=== PATIENT | male | born 1980 | race Caucasian/White ===

== ENCOUNTER 2017-07-21 11:09 | Emergency (ER) | payer OTHER ==
[~2017-07-21] VITALS: Ht 170.2 cm; Wt 70.3 kg
[~2017-07-21 11:09] MED LIST: ACETAMINOPHEN-1 EAC1 PO; FLEXERIL PO; HYDROCODON-ACE1 EAC7 PO; HYDROCODONE-AP1 EAC6 PO; HYDROCODONE-APA1 TA1 PO; MEDROLDOSEPACK PO; NAPROSYN500 MG PO; NOHOMEMEDICATIONS; ROBAXIN 750 MG750 M1 PO; TRAMADOL 50 MG50 MG PO
[2017-07-21 12:25] VITALS: BP 160/99
== END 2017-07-21 12:27 | disposition home or self-care (01) ==
LOC: M.ERS 11:09
DX: S63.8X2A Sprain of other part of left wrist and hand, initial encounter (principal); F17.210 Nicotine dependence, cigarettes, uncomplicated; Z88.1 Allergy status to other antibiotic agents; Z88.6 Allergy status to analgesic agent; Z91.040 Latex allergy status; Z88.0 Allergy status to penicillin; W18.39XA Other fall on same level, initial encounter; Y93.89 Activity, other specified; Y92.89 Other specified places as the place of occurrence of the external cause; Y99.8 Other external cause status

== ENCOUNTER 2017-12-04 07:00 | Emergency (ER) | payer OTHER ==
[~2017-12-04] VITALS: Ht 170.2 cm; Wt 66.7 kg
[2017-12-04] MEDS ORDERED: NORCO 5-325 TA1 EACH PO (07:30)
[2017-12-04 07:43] VITALS: BP 171/100
== END 2017-12-04 07:46 | disposition home or self-care (01) ==
LOC: M.ERS 07:00
DX: M23.92 Unspecified internal derangement of left knee (principal); I10 Essential (primary) hypertension; F17.210 Nicotine dependence, cigarettes, uncomplicated; Z88.0 Allergy status to penicillin; Z88.1 Allergy status to other antibiotic agents; Z88.6 Allergy status to analgesic agent; Z91.040 Latex allergy status; Z90.49 Acquired absence of other specified parts of digestive tract

== ENCOUNTER 2017-12-12 14:40 | Emergency (ER) | payer OTHER ==
[~2017-12-12] VITALS: Ht 170.2 cm; Wt 68.0 kg
[~2017-12-12 14:40] MED LIST changes: +NORCO 5-325 TA1 EACH PO
[2017-12-12] MEDS ORDERED: NORCO 5-325 TA1 EACH PO (15:33)
[2017-12-12 15:56] VITALS: BP 173/108
== END 2017-12-12 15:59 | disposition home or self-care (01) ==
LOC: M.ERS 14:40
DX: M54.5 Low back pain (principal); I10 Essential (primary) hypertension; Z90.49 Acquired absence of other specified parts of digestive tract; F17.210 Nicotine dependence, cigarettes, uncomplicated; Z88.0 Allergy status to penicillin; Z88.1 Allergy status to other antibiotic agents; Z91.040 Latex allergy status; Z88.6 Allergy status to analgesic agent; V89.2XXA Person injured in unspecified motor-vehicle accident, traffic, initial encounter; Y93.89 Activity, other specified; Y92.89 Other specified places as the place of occurrence of the external cause; Y99.8 Other external cause status

== ENCOUNTER 2018-01-15 19:50 | Emergency (ER) | payer OTHER ==
[~2018-01-15] VITALS: Ht 170.2 cm; Wt 68.0 kg
[2018-01-15 20:26] LABS: URINE BILIRUBIN NEGATIVE (Negative); URINE BLOOD TRACE (Negative); URINE CLARITY CLEAR; URINE COLOR YELLOW; URINE GLUCOSE-RANDOM NEGATIVE (Negative); URINE KETONES NEGATIVE (Negative); URINE LEUKOCYTES-REFLEX NEGATIVE (Negative); URINE NITRITE-REFLEX NEGATIVE (Negative); URINE PROTEIN NEGATIVE (Negative); URINE SPECIFIC GRAVITY 1.025 (1.005-1.030); URINE UROBILINOGEN 0.2 E.U./dl (0.2-1.0)
[2018-01-15 20:28] LABS: ABSOLUTE BASOPHILS 0.1 thou/uL (0.0-0.2); ABSOLUTE EOSINOPHILS 0.2 thou/uL (0.0-0.7); ABSOLUTE LYMPHOCYTES 4.5 thou/uL (0.8-5.3); ABSOLUTE NEUTROPHILS 6.1 thou/uL (1.6-8.1); BASOPHILS 0.7 %; EOSINOPHILS 1.8 %; HEMATOCRIT 41.3 % (42.0-52.0); LYMPHOCYTES 37.9 %; MCH 30.2 pg (26.0-34.0); MCHC 33.8 g/dL (28.0-37.0); MCV 89.3 fL (80.0-100.0); MONOCYTES 8.1 %; MPV 10.3 fl. (7.2-11.1); NUCLEATED RBCS 0 /100WBC; PLATELET COUNT* 286 thou/uL (150-400); POLYS 51.5 %; RBC 4.63 mil/uL (4.50-6.00); RDW-CV 14.1 % (10.5-14.5); WBC 11.9 thou/uL (4.0-11.0)
[2018-01-15 20:32] LABS: CALCIUM 9.2 mg/dL (8.5-10.1); CREATININE 1.1 mg/dL (0.6-1.3); POTASSIUM 3.3 mmol/L (3.5-5.1)
[2018-01-15 20:37] LABS: ALBUMIN 3.7 g/dL (3.4-5.0); TOTAL BILIRUBIN 0.4 mg/dL (<0.1-1.0); TOTAL PROTEIN 7.4 g/dL (6.4-8.2)
[2018-01-15 20:37] LABS: AMP/METHAMP Negative (Negative); BARBITURATES Negative (Negative); BENZODIAZEPINES Negative (Negative); COCAINE Negative (Negative); METHADONE Negative (Negative); OPIATES Negative (Negative); PCP Negative (Negative); THC POSITIVE (Negative)
[2018-01-15] MEDS ORDERED: FLAGYL500 MG PO (21:11)
[2018-01-15] MEDS ORDERED: ROBAXIN500 MG PO (21:11)
[2018-01-15 21:26] VITALS: BP 170/98
--- NOTE | 2018-01-17 09:37 | EKG ---
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 : 1980 Requested By: Jacy Jaquez Order Number: [id number] MD: Sheldon Oliver Measurements Intervals [place] Rate: 76 P: 54 ME: 110 QRS: 59 QRSD: 94 T: 62 QT: 396 QTc: 446 Interpretive Statements Sinus rhythm Borderline short ME interval Consider left ventricular hypertrophy ST elev, probable normal early repol pattern No previous ECG available for comparison Electronically Signed On 01-17-2018 9:37:01 CDT by Sheldon Oliver [email or web address] <ELECTRONICALLY SIGNED> By: Sheldon Oliver MD, [facility] 08/936 20 20 Sheldon Oliver MD, [facility] /EPI
== END 2018-01-15 21:26 | disposition home or self-care (01) ==
LOC: M.ERS 19:50
PROVIDERS: Nurse Practitioner Family
DX: S39.012A Strain of muscle, fascia and tendon of lower back, initial encounter (principal); K52.9 Noninfective gastroenteritis and colitis, unspecified; I10 Essential (primary) hypertension; F17.210 Nicotine dependence, cigarettes, uncomplicated; Z90.49 Acquired absence of other specified parts of digestive tract; Z88.1 Allergy status to other antibiotic agents; Z88.6 Allergy status to analgesic agent; Z91.040 Latex allergy status; Z88.0 Allergy status to penicillin; X58.XXXA Exposure to other specified factors, initial encounter; Y93.89 Activity, other specified; Y92.89 Other specified places as the place of occurrence of the external cause; Y99.8 Other external cause status

== ENCOUNTER 2018-02-28 11:57 | Emergency (ER) | payer OTHER ==
[~2018-02-28] VITALS: Ht 170.2 cm; Wt 68.0 kg
[~2018-02-28 11:57] MED LIST changes: +FLAGYL500 MG PO; +ROBAXIN500 MG PO
[2018-02-28] MEDS ORDERED: NORCO 5-325 TA1 EACH PO (12:54)
[2018-02-28 13:07] VITALS: BP 191/120
== END 2018-02-28 13:07 | disposition home or self-care (01) ==
LOC: M.ERS 11:57
DX: M25.562 Pain in left knee (principal); I10 Essential (primary) hypertension; F17.210 Nicotine dependence, cigarettes, uncomplicated; Z88.0 Allergy status to penicillin; Z88.1 Allergy status to other antibiotic agents; Z88.6 Allergy status to analgesic agent; Z91.040 Latex allergy status; Z90.49 Acquired absence of other specified parts of digestive tract

== ENCOUNTER 2018-09-23 18:30 | Emergency (ER) | payer OTHER ==
[~2018-09-23] VITALS: Ht 170.2 cm; Wt 70.3 kg
[2018-09-23] MEDS ORDERED: ACETAMINOPHEN-1 EAC1 PO (19:21)
[2018-09-23 19:48] VITALS: BP 151/88
== END 2018-09-23 19:45 | disposition home or self-care (01) ==
LOC: M.ERS 18:30
DX: S93.491A Sprain of other ligament of right ankle, initial encounter (principal); I10 Essential (primary) hypertension; F17.210 Nicotine dependence, cigarettes, uncomplicated; Z90.49 Acquired absence of other specified parts of digestive tract; Z88.1 Allergy status to other antibiotic agents; Z91.040 Latex allergy status; Z88.0 Allergy status to penicillin; Z88.6 Allergy status to analgesic agent; X50.1XXA Overexertion from prolonged static or awkward postures, initial encounter; Y93.89 Activity, other specified; Y92.89 Other specified places as the place of occurrence of the external cause; Y99.8 Other external cause status

== ENCOUNTER 2018-10-22 19:01 | Observation (INO) | payer OTHER ==
[~2018-10-22] VITALS: Ht 170.2 cm; Wt 61.2 kg
--- NOTE | ~2018-10-22 | CON ---
[address] [address] CONSULTATION Name: FANNY BETTS Room: [address] [place]#: [id number] Admission: 10/22/18 Attend Phys: Heron Tobias MD Discharge: Date of : 84 Report #: [id number] THIS REPORT FOR: //name// CC: FAM physician/PCP Heron Tobias DATE OF SERVICE: 10/23/2018 REASON FOR CONSULTATION: Left ureteral stone with hydronephrosis. CONSULTING PHYSICIAN: Heron Garcia M.D. REFERRING PHYSICIAN: Heron Tobias M.D. HISTORY OF PRESENT ILLNESS: This is a 38-year-old male who presented to the Emergency Room with severe left flank pain for approximately 24 hours. The pain was colicky in nature, severe, up to 9/10. He does have a history of kidney stones and he has passed spontaneously in the past with similar pain. The pain was in his left flank and it radiated to his left upper quadrant. He has had some associated nausea and vomiting, but that did not start until after he was taking the narcotics. He denies any diarrhea, fever, chills, dysuria or hematuria. PAST MEDICAL HISTORY: Hernia surgery, cholecystectomy, nasal surgery x 2, hypertension. There is poorly controlled GI bleed and kidney stones. CURRENT MEDICATIONS: None. However, he has been prescribed hydrochlorothiazide, which he has not been taking because he was afraid of the side effects. ALLERGIES: AMOXICILLIN, ASPIRIN, LATEX, PENICILLIN, AND TRAMADOL. SOCIAL HISTORY: He smokes cigarettes. Denies any alcohol use. REVIEW OF SYSTEMS: See HPI. A 14-point review of systems otherwise reviewed and negative. PHYSICAL EXAMINATION: VITAL SIGNS: Temperature is 36.9, pulse rate 65, respiratory rate 20, blood pressure 190/111. GENERAL: He is alert and oriented x 3, in no apparent distress. HEENT: Normocephalic and atraumatic. NECK: Supple. LUNGS: Clear. HEART: Regular rate and rhythm. ABDOMEN: Soft, nontender, [place] [address] CONSULTATION Name: FANNY BETTS Room: [address]#: [id number] Admission: 10/22/18 Attend Phys: Heron Tobias MD Discharge: Date of : 84 Report #: [id number] BACK: Mild to moderate left CVA tenderness, right is normal. GENITOURINARY: No palpable bladder,. No suprapubic tenderness. EXTREMITIES: No cyanosis, clubbing, edema. NEUROLOGIC: Cranial nerves 2-12 are intact. LABORATORY DATA: White count is 10.1, hemoglobin 14.8, and platelet 286. Sodium is 141, potassium 3.9, BUN 15, and creatinine 1.4. Urinalysis, 3+ blood with greater than 20 red cells per power field, 0-5 white blood cells, no bacteria. CT of the abdomen and pelvis. I reviewed the images. This reveals a 7 mm left proximal ureteral stone with hydronephrosis. The report states that it is at the UVJ, but that is incorrect. It also states it is 7 mm. I would estimate it more at 4-5 mm. He does have 2-3 mm right lower pole stone as well. ASSESSMENT AND PLAN: A 4-5 mm left proximal ureteral stone with hydronephrosis. I reviewed the options in detail with the patient and his significant other. They include medical expulsive therapy versus ESWL as an outpatient versus ureteroscopy, laser lithotripsy and stent. His pain has been fairly difficult to control, but he wants to avoid a ureteral stent if at all possible. In fact, today is his birthday and he would like to discharge home TAMANNA. We discussed the risks and benefits of each option and after reviewing his labs and his options, he would like to proceed with ESWL as an outpatient if possible. I recommend obtaining a KUB to see if that is an option. If so, he would like to discharge home and follow up later this week for possible lithotripsy. If the stone is not visible, the patient still wants to be discharged home and follow up as an outpatient to see if he can pass the stone with medical expulsive therapy. We reviewed that should he develop significant nausea, vomiting, fever, chills or have uncontrolled pain, he will need to notify me or return to the hospital. He and his had a chance to ask questions, which were answered to his satisfaction, and they agreed with the plan. We will obtain a KUB to see if the stone is visible. Okay to discharge from Urology standpoint. He does have uncontrolled hypertension and that will need to be better controlled before proceeding with any procedures. We will defer to the medical team for treatment of that problem. I did encourage the patient to take his prescribed home medication of an antihypertensive. We will prescribe Flomax for the patient to take and he will strain his urine until his stone is treated. By: [id number] Garcia MD /nt
[2018-10-22 19:05] VITALS: BP 208/128
[2018-10-22 19:31] LABS: ABSOLUTE BASOPHILS 0.1 thou/uL (0.0-0.2); ABSOLUTE EOSINOPHILS 0.3 thou/uL (0.0-0.7); ABSOLUTE LYMPHOCYTES 3.5 thou/uL (0.8-5.3); ABSOLUTE MONOCYTES 0.9 thou/uL (0.0-1.2); ABSOLUTE NEUTROPHILS 5.4 thou/uL (1.6-8.1); BASOPHILS 0.9 %; EOSINOPHILS 2.7 %; HEMATOCRIT 43.8 % (42.0-52.0); HEMOGLOBIN 14.8 gm/dL (14.0-18.0); LYMPHOCYTES 34.6 %; MCH 29.2 pg (26.0-34.0); MCHC 33.8 g/dL (28.0-37.0); MCV 86.5 fL (80.0-100.0); MPV 10.3 fl. (7.2-11.1); NUCLEATED RBCS 0 /100WBC; PLATELET COUNT* 286 thou/uL (150-400); POLYS 52.8 %; RBC 5.06 mil/uL (4.50-6.00); RDW-CV 15.2 % (10.5-14.5); WBC 10.2 thou/uL (4.0-11.0)
[2018-10-22 19:39] LABS: CALCIUM 9.5 mg/dL (8.5-10.1); CREATININE 1.4 mg/dL (0.6-1.3); POTASSIUM 3.9 mmol/L (3.5-5.1)
[2018-10-22 19:43] LABS: ALBUMIN 3.8 g/dL (3.4-5.0); TOTAL BILIRUBIN 0.4 mg/dL (<0.1-1.0); TOTAL PROTEIN 7.7 g/dL (6.4-8.2)
[2018-10-22 20:19] LABS: URINE BILIRUBIN NEGATIVE (Negative); URINE BLOOD 3+ (Negative); URINE CLARITY CLEAR; URINE COLOR YELLOW; URINE GLUCOSE-RANDOM NEGATIVE (Negative); URINE KETONES NEGATIVE (Negative); URINE LEUKOCYTES-REFLEX NEGATIVE (Negative); URINE NITRITE-REFLEX NEGATIVE (Negative); URINE PROTEIN 1+ (Negative); URINE SPECIFIC GRAVITY >= 1.030 (1.005-1.030); URINE UROBILINOGEN 0.2 E.U./dl (0.2-1.0)
[2018-10-22 20:39] LABS: BACTERIA-REFLEX None Seen /HPF (None Seen); CASTS None Seen /LPF (None Seen); CRYSTALS None Seen /LPF (None Seen); SQUAMOUS 0-3 Few /LPF (0-3); URINE RBC >20 Many /HPF (0-2); URINE WBC-REFLEX 0-5 Rare /HPF (0-5)
[2018-10-22 21:17] VITALS: BP 196/125
[2018-10-22 21:30] VITALS: BP 211/106
[2018-10-23 04:48] VITALS: BP 190/111
[2018-10-23 08:00] VITALS: BP 192/113
[2018-10-23] MEDS ORDERED: UROCIT-K10 ME1 PO (08:31)
[2018-10-23] MEDS ORDERED: HYDROCHLOROTHIA25 M1 PO (08:31)
[2018-10-23] MEDS ORDERED: HYDROCODON-ACE1 EAC7 PO (08:31)
[2018-10-23] MEDS ORDERED: ZOFRAN ODT4 MG PO (08:31)
[2018-10-23] MEDS ORDERED: LEVSIN0.125 MG SUBLING (08:31)
[2018-10-23] MEDS ORDERED: FLOMAX0.4 MG PO (08:38)
[2018-10-23 09:28] LABS: CREATININE 0.9 mg/dL (0.6-1.3); POTASSIUM 3.5 mmol/L (3.5-5.1)
[2018-10-23 10:57] VITALS: BP 192/116
== END 2018-10-23 14:10 | disposition home or self-care (01) ==
LOC: M.ERS 19:01 → M.TBA-ER 20:24 → M.ORTHSURG 20:24
PROVIDERS: Nurse Practitioner Family; ADMIT Internal Medicine
DX: N13.2 Hydronephrosis with renal and ureteral calculous obstruction (principal); N17.9 Acute kidney failure, unspecified; R11.2 Nausea with vomiting, unspecified; I10 Essential (primary) hypertension; I16.0 Hypertensive urgency; F17.210 Nicotine dependence, cigarettes, uncomplicated; Z90.49 Acquired absence of other specified parts of digestive tract; Z88.6 Allergy status to analgesic agent; Z88.1 Allergy status to other antibiotic agents; Z88.0 Allergy status to penicillin; Z91.040 Latex allergy status; Z98.890 Other specified postprocedural states

== ENCOUNTER 2018-11-13 15:40 | Inpatient (IN) | payer OTHER ==
[~2018-11-13] VITALS: Ht 170.2 cm; Wt 61.2 kg
[~2018-11-13 15:40] MED LIST changes: +FLOMAX0.4 MG PO; +HYDROCHLOROTHIA25 M1 PO; +LEVSIN0.125 MG SUBLING; +UROCIT-K10 ME1 PO; +ZOFRAN ODT4 MG PO
[2018-11-13 15:49] VITALS: BP 169/106
[2018-11-13 16:07] LABS: URINE BILIRUBIN NEGATIVE (Negative); URINE BLOOD TRACE (Negative); URINE CLARITY CLEAR; URINE COLOR YELLOW; URINE GLUCOSE-RANDOM NEGATIVE (Negative); URINE KETONES NEGATIVE (Negative); URINE LEUKOCYTES-REFLEX TRACE (Negative); URINE NITRITE-REFLEX NEGATIVE (Negative); URINE PROTEIN NEGATIVE (Negative); URINE UROBILINOGEN 0.2 E.U./dl (0.2-1.0)
[2018-11-13 16:17] LABS: BACTERIA-REFLEX None Seen /HPF (None Seen); CASTS None Seen /LPF (None Seen); CRYSTALS None Seen /LPF (None Seen); SQUAMOUS 0-3 Few /LPF (0-3); URINE RBC None Seen /HPF (0-2); URINE WBC-REFLEX 0-5 Rare /HPF (0-5)
[2018-11-13 16:20] LABS: ABSOLUTE BASOPHILS 0.1 thou/uL (0.0-0.2); ABSOLUTE EOSINOPHILS 0.2 thou/uL (0.0-0.7); ABSOLUTE MONOCYTES 0.9 thou/uL (0.0-1.2); ABSOLUTE NEUTROPHILS 9.8 thou/uL (1.6-8.1); BASOPHILS 0.8 %; EOSINOPHILS 1.1 %; HEMATOCRIT 46.4 % (42.0-52.0); HEMOGLOBIN 15.8 gm/dL (14.0-18.0); LYMPHOCYTES 21.4 %; MCH 29.2 pg (26.0-34.0); MCHC 34.1 g/dL (28.0-37.0); MCV 85.7 fL (80.0-100.0); MONOCYTES 6.4 %; MPV 10.2 fl. (7.2-11.1); NUCLEATED RBCS 0 /100WBC; PLATELET COUNT* 268 thou/uL (150-400); POLYS 70.3 %; RBC 5.41 mil/uL (4.50-6.00); RDW-CV 14.5 % (10.5-14.5); WBC 13.9 thou/uL (4.0-11.0)
[2018-11-13 16:26] LABS: ANION GAP 13 mmol/L (7-16); BUN 17 mg/dL (7-18); CALCIUM 10.2 mg/dL (8.5-10.1); CHLORIDE 101 mmol/L (98-107); CO2 26 mmol/L (21-32); GLUCOSE 105 mg/dL (70-99); POTASSIUM 3.5 mmol/L (3.5-5.1); SODIUM 140 mmol/L (136-145)
[2018-11-13 16:37] LABS: ALBUMIN 4.2 g/dL (3.4-5.0); ALKALINE PHOSPHATASE 70 U/L (46-116); LIPASE 94 U/L (73-393); SGOT 19 U/L (15-37); SGPT 29 U/L (30-65); TOTAL BILIRUBIN 0.6 mg/dL (<0.1-1.0); TOTAL PROTEIN 8.3 g/dL (6.4-8.2); TROPONIN-I LEVEL <0.06 ng/mL (<0.06)
[2018-11-13 18:04] VITALS: BP 152/100
[2018-11-13 18:25] VITALS: BP 172/107
--- NOTE | 2018-11-13 19:33 | NUR ---
PATIENT ADMITTED TO ROOM 110 VIA CART FROM ER AT 1825. PATIENT'S ASSESSMENT, HISTORY, AND VITALS CHARTED. NEW IV STARTED PER PATIENT REQUEST. IVF INFUSING. UROLOGY CONSULT NOTED. TO BE NPO AFTER MIDNIGHT AND PATIENT AWARE. PATIENT ORIENTED TO ROOM AND ENVIRONMENT. CALL LIGHT WITHIN REACH. WILL CONTINUE WITH PLAN OF CARE.
[2018-11-13 20:00] VITALS: BP 146/89
[2018-11-14 04:30] LABS: HEMATOCRIT 39.2 % (42.0-52.0); MCHC 32.9 g/dL (28.0-37.0); MPV 10.8 fl. (7.2-11.1); RBC 4.45 mil/uL (4.50-6.00); RDW-CV 14.5 % (10.5-14.5); WBC 8.8 thou/uL (4.0-11.0)
[2018-11-14 04:36] LABS: HEMOGLOBIN 12.9 gm/dL (14.0-18.0)
[2018-11-14 04:37] LABS: CALCIUM 8.9 mg/dL (8.5-10.1); CREATININE 0.9 mg/dL (0.6-1.3); MAGNESIUM 1.8 mg/dL (1.8-2.4); POTASSIUM 3.8 mmol/L (3.5-5.1)
--- NOTE | 2018-11-14 06:44 | NUR ---
PATIENT SLEPT VERY LITTLE THIS SHIFT. IV FLUIDS CONTINUE TO INFUSE AT 150 ML/HR. PATIENT WAS GIVEN PAIN MEDICINE ABOUT EVERY 2-3 HOURS AND NAUSEA MEDICINE ONCE THIS SHIFT. PATIENT HAS BEEN NPO SINCE MIDNIGHT FOR POSSIBLE PROCEDURE TODAY. WILL CONTINUE TO MONITOR.
[2018-11-14 07:25] VITALS: BP 152/99
--- NOTE | 2018-11-14 11:28 | EKG ---
[place] [address] ELECTROCARDIOGRAM REPORT Name: FANNY BETTS Room: [address] ADM IN 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: LESLIE : 1980 Requested By: Fatemeh Ramirez Order Number: [id number] MD: Sheldon Oliver Measurements Intervals [place] Rate: 87 P: 51 UT: 116 QRS: 49 QRSD: 85 T: 60 QT: 384 QTc: 462 Interpretive Statements Sinus rhythm Borderline short UT interval ST elev, probable normal early repol pattern Baseline wander in lead(s) V1 Compared to ECG 01/15/2018 20:21:12 No significant changes Electronically Signed On 11-14-2018 11:28:01 CDT by Sheldon Oliver [email or web address] <ELECTRONICALLY SIGNED> By: Sheldon Oliver MD, FAC 11/14/18 1128 1632 1632 Sheldon Oliver MD, FAC /EPI
--- NOTE | 2018-11-14 12:02 | NUR ---
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 HAS LIMITED SUPPORT SYSTEM. PT NEEDING TO TRANSFER TO IN NETWORK FACILITY WITH HIS INSURANCE. UROLOGY GROUP HERE DECLINED TO SEE PT HE IS OUT OF NETWORK. DISCUSSED WITH PT. HE STATED HE HAS APPT FOR SURGERY AT [facility] ON AND WOULD LIKE TO TRSF THERE. [place] [facility] [place] AND HAVE 10 WAITING. [place] TO [place]ICE [place] [facility] SPOKE WITH LATOSHA, CONFIRMED HIS SURGERY IS NOT TILL DECEMBER 11. DISCUSSED FURTHER WITH PT AND GAVE OPTIONS OF OTHER HOSPITALS, AGREEABLE TO CONSIDER [facility]. CALLED AND FAXED REFERRAL TO [facility], THEIR DR/URO SPOKE WITH DR APARICIO AND PT WAS ACCEPTED BY DR PATEL. CHART COPIED, RN TO CALL REPORT TO [facility] [phone]. SET UP AMBULANCE TRANSPORT AND PT NOTIFIED HIS GF. PER DR APARICIO, TO HAVE PROCEDURE TODAY OR TOMORROW, PT MADE AWARE. HE VOICED FRUSTRATION WITH PROCESS, EXPLAINED INSURANCE ISSUES, HE UNDERSTOOD
--- NOTE | 2018-11-14 13:06 | NUR ---
PT TRANSFERRED TO [facility] DUE TO INSURANCE. IV IN PLACE. PAIN MEDS GIVEN ORDERED. NAUSEA MEDS GIVEN ORDERED. FALL RISK PRECAUTIONS IN PLACE. HOURLY ROUNDING COMPLETED.
== END 2018-11-14 13:07 | disposition short-term general hospital (02) | DRG 694 ==
LOC: M.ERS 15:40 → M.TBA-ER 17:04 → M.ORTHSURG 18:07
PROVIDERS: Nurse Practitioner Family; ADMIT Internal Medicine
DX: N13.2 Hydronephrosis with renal and ureteral calculous obstruction (principal); N13.0 Hydronephrosis with ureteropelvic junction obstruction; I10 Essential (primary) hypertension; F17.210 Nicotine dependence, cigarettes, uncomplicated; Z87.442 Personal history of urinary calculi; Z90.49 Acquired absence of other specified parts of digestive tract; Z79.899 Other long term (current) drug therapy; Z88.0 Allergy status to penicillin; Z88.8 Allergy status to other drugs, medicaments and biological substances; Z88.6 Allergy status to analgesic agent; Z88.1 Allergy status to other antibiotic agents; Z91.040 Latex allergy status

== ENCOUNTER 2019-02-07 22:46 | Emergency (ER) | payer OTHER ==
[~2019-02-07] VITALS: Ht 170.2 cm; Wt 65.8 kg
[2019-02-07 23:12] LABS: ABSOLUTE BASOPHILS 0.1 thou/uL (0.0-0.2); ABSOLUTE EOSINOPHILS 0.2 thou/uL (0.0-0.7); ABSOLUTE LYMPHOCYTES 3.4 thou/uL (0.8-5.3); ABSOLUTE MONOCYTES 0.9 thou/uL (0.0-1.2); ABSOLUTE NEUTROPHILS 5.8 thou/uL (1.6-8.1); BASOPHILS 1.1 %; EOSINOPHILS 1.6 %; HEMOGLOBIN 14.7 gm/dL (14.0-18.0); LYMPHOCYTES 32.6 %; MCH 30.4 pg (26.0-34.0); MCHC 34.2 g/dL (28.0-37.0); MCV 88.9 fL (80.0-100.0); MONOCYTES 8.8 %; MPV 10.2 fl. (7.2-11.1); NUCLEATED RBCS 0 /100WBC; PLATELET COUNT* 268 thou/uL (150-400); POLYS 55.9 %; RBC 4.83 mil/uL (4.50-6.00); RDW-CV 14.2 % (10.5-14.5); WBC 10.5 thou/uL (4.0-11.0)
[2019-02-07 23:13] LABS: URINE BILIRUBIN NEGATIVE (Negative); URINE BLOOD 1+ (Negative); URINE CLARITY CLEAR; URINE COLOR YELLOW; URINE GLUCOSE-RANDOM NEGATIVE (Negative); URINE KETONES NEGATIVE (Negative); URINE LEUKOCYTES-REFLEX NEGATIVE (Negative); URINE NITRITE-REFLEX NEGATIVE (Negative); URINE PROTEIN NEGATIVE (Negative); URINE SPECIFIC GRAVITY 1.015 (1.005-1.030); URINE UROBILINOGEN 0.2 E.U./dl (0.2-1.0)
[2019-02-07 23:19] LABS: CALCIUM 9.2 mg/dL (8.5-10.1); CREATININE 0.9 mg/dL (0.6-1.3); POTASSIUM 3.4 mmol/L (3.5-5.1)
[2019-02-07 23:19] LABS: BACTERIA-REFLEX 1-9 Few /HPF (None Seen); CASTS None Seen /LPF (None Seen); MUCUS 0-3 Light strn/LPF (None Seen); SQUAMOUS NONE SEEN /LPF (0-3); URINE RBC 3-10 Few /HPF (0-2); URINE WBC-REFLEX None Seen /HPF (0-5)
[2019-02-07 23:20] LABS: AMORPHOUS URATES Many /LPF (None Seen)
[2019-02-07 23:24] LABS: TOTAL BILIRUBIN 0.4 mg/dL (<0.1-1.0); TOTAL PROTEIN 7.6 g/dL (6.4-8.2)
[2019-02-08] MEDS ORDERED: KEFLEX500 M1 PO (00:59)
[2019-02-08] MEDS ORDERED: NORCO 5-325 TA1 EAC1 PO (00:59)
[2019-02-08 01:11] VITALS: BP 152/94
== END 2019-02-08 01:11 | disposition home or self-care (01) ==
LOC: M.ERS 22:46
PROVIDERS: Emergency Medicine Emergency Medical Services
DX: R10.9 Unspecified abdominal pain (principal); F17.210 Nicotine dependence, cigarettes, uncomplicated; I10 Essential (primary) hypertension; Z88.6 Allergy status to analgesic agent; Z91.040 Latex allergy status; Z88.0 Allergy status to penicillin; Z88.1 Allergy status to other antibiotic agents; Z90.49 Acquired absence of other specified parts of digestive tract; Z87.442 Personal history of urinary calculi

== ENCOUNTER 2019-03-02 18:24 | Emergency (ER) | payer OTHER ==
[~2019-03-02] VITALS: Ht 170.2 cm; Wt 63.5 kg
[~2019-03-02 18:24] MED LIST changes: +KEFLEX500 M1 PO; +NORCO 5-325 TA1 EAC1 PO
[2019-03-02 19:12] LABS: HEMATOCRIT 46.3 % (42.0-52.0); HEMOGLOBIN 16.1 gm/dL (14.0-18.0); MCH 30.1 pg (26.0-34.0); MCHC 34.7 g/dL (28.0-37.0); MCV 86.8 fL (80.0-100.0); MPV 10.2 fl. (7.2-11.1); RBC 5.33 mil/uL (4.50-6.00); RDW-CV 14.4 % (10.5-14.5); WBC 13.4 thou/uL (4.0-11.0)
[2019-03-02 19:19] LABS: CALCIUM 9.5 mg/dL (8.5-10.1); POTASSIUM 3.6 mmol/L (3.5-5.1)
[2019-03-02 20:44] LABS: URINE BILIRUBIN NEGATIVE (Negative); URINE BLOOD 1+ (Negative); URINE CLARITY CLEAR; URINE COLOR YELLOW; URINE GLUCOSE-RANDOM NEGATIVE (Negative); URINE KETONES NEGATIVE (Negative); URINE LEUKOCYTES-REFLEX NEGATIVE (Negative); URINE NITRITE-REFLEX NEGATIVE (Negative); URINE PROTEIN NEGATIVE (Negative); URINE UROBILINOGEN 0.2 E.U./dl (0.2-1.0)
[2019-03-02 20:55] LABS: BACTERIA-REFLEX None Seen /HPF (None Seen); CASTS None Seen /LPF (None Seen); CRYSTALS None Seen /LPF (None Seen); MUCUS 0-3 Light strn/LPF (None Seen); SQUAMOUS 0-3 Few /LPF (0-3); URINE RBC 0-2 Rare /HPF (0-2); URINE WBC-REFLEX None Seen /HPF (0-5)
[2019-03-02] MEDS ORDERED: FLOMAX0.4 MG PO (20:59)
[2019-03-02] MEDS ORDERED: FLEXERIL PO (21:00)
[2019-03-02] MEDS ORDERED: NORCO 5-325 TA1 EAC1 PO (21:00)
[2019-03-02 21:18] VITALS: BP 145/80
== END 2019-03-02 21:20 | disposition home or self-care (01) ==
LOC: M.ERS 18:24
PROVIDERS: Nurse Practitioner
DX: R10.84 Generalized abdominal pain (principal); I10 Essential (primary) hypertension; F17.210 Nicotine dependence, cigarettes, uncomplicated; Z88.6 Allergy status to analgesic agent; Z88.1 Allergy status to other antibiotic agents; Z88.0 Allergy status to penicillin; Z91.040 Latex allergy status; Z87.442 Personal history of urinary calculi; Z90.49 Acquired absence of other specified parts of digestive tract

== ENCOUNTER 2019-04-01 18:58 | Emergency (ER) | payer OTHER ==
[~2019-04-01] VITALS: Ht 170.2 cm; Wt 65.8 kg
[2019-04-01 19:33] LABS: URINE BILIRUBIN NEGATIVE (Negative); URINE BLOOD TRACE (Negative); URINE CLARITY CLEAR; URINE COLOR YELLOW; URINE GLUCOSE-RANDOM NEGATIVE (Negative); URINE KETONES NEGATIVE (Negative); URINE LEUKOCYTES-REFLEX NEGATIVE (Negative); URINE NITRITE-REFLEX NEGATIVE (Negative); URINE PROTEIN NEGATIVE (Negative); URINE UROBILINOGEN 0.2 E.U./dl (0.2-1.0)
[2019-04-01 20:02] LABS: ABSOLUTE BASOPHILS 0.1 thou/uL (0.0-0.2); ABSOLUTE EOSINOPHILS 0.2 thou/uL (0.0-0.7); ABSOLUTE LYMPHOCYTES 4.4 thou/uL (0.8-5.3); ABSOLUTE MONOCYTES 0.7 thou/uL (0.0-1.2); ABSOLUTE NEUTROPHILS 3.5 thou/uL (1.6-8.1); BASOPHILS 1.4 %; EOSINOPHILS 2.8 %; HEMATOCRIT 40.1 % (42.0-52.0); HEMOGLOBIN 13.9 gm/dL (14.0-18.0); LYMPHOCYTES 49.6 %; MCH 30.3 pg (26.0-34.0); MCHC 34.6 g/dL (28.0-37.0); MCV 87.4 fL (80.0-100.0); MONOCYTES 7.3 %; MPV 9.6 fl. (7.2-11.1); NUCLEATED RBCS 0 /100WBC; PLATELET COUNT* 314 thou/uL (150-400); POLYS 38.9 %; RBC 4.59 mil/uL (4.50-6.00); RDW-CV 14.3 % (10.5-14.5); WBC 8.9 thou/uL (4.0-11.0)
[2019-04-01 20:11] LABS: CALCIUM 8.8 mg/dL (8.5-10.1); POTASSIUM 3.8 mmol/L (3.5-5.1)
[2019-04-01 20:15] LABS: ALBUMIN 3.6 g/dL (3.4-5.0); TOTAL BILIRUBIN 0.2 mg/dL (<0.1-1.0); TOTAL PROTEIN 7.2 g/dL (6.4-8.2)
[2019-04-01] MEDS ORDERED: NORCO 5-325 TA1 EAC1 PO (21:17)
[2019-04-01 22:04] VITALS: BP 149/97
== END 2019-04-01 22:05 | disposition home or self-care (01) ==
LOC: M.ERS 18:58
PROVIDERS: Nurse Practitioner Family
DX: R10.9 Unspecified abdominal pain (principal); I10 Essential (primary) hypertension; F17.210 Nicotine dependence, cigarettes, uncomplicated; Z90.49 Acquired absence of other specified parts of digestive tract; Z87.442 Personal history of urinary calculi; Z88.6 Allergy status to analgesic agent; Z88.1 Allergy status to other antibiotic agents; Z88.0 Allergy status to penicillin; Z88.8 Allergy status to other drugs, medicaments and biological substances

== ENCOUNTER 2019-04-26 21:16 | Emergency (ER) | payer OTHER ==
[~2019-04-26] VITALS: Ht 170.2 cm; Wt 63.5 kg
[2019-04-26 21:37] LABS: URINE BILIRUBIN NEGATIVE (Negative); URINE BLOOD 2+ (Negative); URINE CLARITY CLEAR; URINE COLOR YELLOW; URINE GLUCOSE-RANDOM NEGATIVE (Negative); URINE KETONES NEGATIVE (Negative); URINE LEUKOCYTES-REFLEX NEGATIVE (Negative); URINE NITRITE-REFLEX NEGATIVE (Negative); URINE PROTEIN NEGATIVE (Negative); URINE SPECIFIC GRAVITY 1.025 (1.005-1.030); URINE UROBILINOGEN 0.2 E.U./dl (0.2-1.0)
[2019-04-26 21:41] LABS: ABSOLUTE BASOPHILS 0.1 thou/uL (0.0-0.2); ABSOLUTE EOSINOPHILS 0.3 thou/uL (0.0-0.7); ABSOLUTE LYMPHOCYTES 4.7 thou/uL (0.8-5.3); ABSOLUTE MONOCYTES 1.2 thou/uL (0.0-1.2); ABSOLUTE NEUTROPHILS 9.8 thou/uL (1.6-8.1); BASOPHILS 0.8 %; EOSINOPHILS 1.8 %; HEMATOCRIT 42.2 % (42.0-52.0); HEMOGLOBIN 14.5 gm/dL (14.0-18.0); LYMPHOCYTES 29.3 %; MCHC 34.3 g/dL (28.0-37.0); MCV 87.4 fL (80.0-100.0); MONOCYTES 7.5 %; MPV 9.6 fl. (7.2-11.1); NUCLEATED RBCS 0 /100WBC; PLATELET COUNT* 318 thou/uL (150-400); POLYS 60.6 %; RBC 4.82 mil/uL (4.50-6.00); RDW-CV 14.3 % (10.5-14.5); WBC 16.1 thou/uL (4.0-11.0)
[2019-04-26 21:45] LABS: AMP/METHAMP Negative (Negative); BARBITURATES Negative (Negative); BENZODIAZEPINES Negative (Negative); COCAINE Negative (Negative); METHADONE Negative (Negative); OPIATES POSITIVE (Negative); PCP Negative (Negative); THC Negative (Negative)
[2019-04-26 21:47] LABS: BACTERIA-REFLEX 1-9 Few /HPF (None Seen); CASTS None Seen /LPF (None Seen); CRYSTALS None Seen /LPF (None Seen); URINE RBC 0-2 Rare /HPF (0-2); URINE WBC-REFLEX 0-5 Rare /HPF (0-5)
[2019-04-26 21:54] LABS: CALCIUM 9.3 mg/dL (8.5-10.1)
[2019-04-26] MEDS ORDERED: HYDROCODON-ACE1 EAC8 PO (22:43)
[2019-04-26 23:05] VITALS: BP 151/92
== END 2019-04-26 22:50 | disposition home or self-care (01) ==
LOC: M.ERS 21:16
PROVIDERS: Emergency Medicine
DX: N23 Unspecified renal colic (principal); F17.210 Nicotine dependence, cigarettes, uncomplicated; R42 Dizziness and giddiness; I10 Essential (primary) hypertension; Z87.442 Personal history of urinary calculi; Z88.0 Allergy status to penicillin; Z88.1 Allergy status to other antibiotic agents; Z88.6 Allergy status to analgesic agent; Z91.040 Latex allergy status; Z90.49 Acquired absence of other specified parts of digestive tract

== ENCOUNTER 2019-05-12 05:52 | Emergency (ER) | payer OTHER ==
[~2019-05-12] VITALS: Ht 170.2 cm; Wt 65.8 kg
[~2019-05-12 05:52] MED LIST changes: +HYDROCODON-ACE1 EAC8 PO
[2019-05-12] MEDS ORDERED: FLOMAX0.4 MG PO (06:19)
[2019-05-12] MEDS ORDERED: NORFLEX100 MG PO (06:19)
[2019-05-12 06:41] LABS: HEMATOCRIT 44.1 % (42.0-52.0); HEMOGLOBIN 15.1 gm/dL (14.0-18.0); MCH 30.2 pg (26.0-34.0); MCHC 34.4 g/dL (28.0-37.0); MCV 87.9 fL (80.0-100.0); MPV 10.1 fl. (7.2-11.1); RBC 5.01 mil/uL (4.50-6.00); RDW-CV 14.4 % (10.5-14.5); WBC 8.6 thou/uL (4.0-11.0)
[2019-05-12 06:49] LABS: CREATININE 0.8 mg/dL (0.6-1.3); POTASSIUM 3.7 mmol/L (3.5-5.1)
[2019-05-12] MEDS ORDERED: HYDROCODON-ACE1 EAC7 PO (06:50)
[2019-05-12 07:50] VITALS: BP 145/91
== END 2019-05-12 07:52 | disposition home or self-care (01) ==
LOC: M.ERS 05:52
PROVIDERS: Personal Emergency Response Attendant
DX: N23 Unspecified renal colic (principal); I10 Essential (primary) hypertension; F17.210 Nicotine dependence, cigarettes, uncomplicated; Z90.49 Acquired absence of other specified parts of digestive tract; Z87.442 Personal history of urinary calculi; Z88.0 Allergy status to penicillin; Z88.6 Allergy status to analgesic agent; Z91.040 Latex allergy status; Z88.8 Allergy status to other drugs, medicaments and biological substances

== ENCOUNTER 2019-05-23 13:46 | Emergency (ER) | payer OTHER ==
[~2019-05-23] VITALS: Ht 170.2 cm; Wt 65.8 kg
[~2019-05-23 13:46] MED LIST changes: +NORFLEX100 MG PO
[2019-05-23 14:02] LABS: URINE BILIRUBIN NEGATIVE (Negative); URINE BLOOD TRACE (Negative); URINE CLARITY CLEAR; URINE COLOR YELLOW; URINE GLUCOSE-RANDOM NEGATIVE (Negative); URINE KETONES NEGATIVE (Negative); URINE LEUKOCYTES-REFLEX NEGATIVE (Negative); URINE NITRITE-REFLEX NEGATIVE (Negative); URINE PROTEIN NEGATIVE (Negative); URINE UROBILINOGEN 0.2 E.U./dl (0.2-1.0)
[2019-05-23 14:15] LABS: ABSOLUTE EOSINOPHILS 0.2 thou/uL (0.0-0.7); ABSOLUTE MONOCYTES 0.9 thou/uL (0.0-1.2); ABSOLUTE NEUTROPHILS 6.2 thou/uL (1.6-8.1); BASOPHILS 0.2 %; EOSINOPHILS 2.2 %; HEMOGLOBIN 14.7 gm/dL (14.0-18.0); LYMPHOCYTES 35.5 %; MCHC 34.2 g/dL (28.0-37.0); MCV 87.9 fL (80.0-100.0); MONOCYTES 7.8 %; MPV 9.9 fl. (7.2-11.1); NUCLEATED RBCS 0 /100WBC; PLATELET COUNT* 318 thou/uL (150-400); POLYS 54.3 %; RBC 4.89 mil/uL (4.50-6.00); RDW-CV 14.6 % (10.5-14.5); WBC 11.4 thou/uL (4.0-11.0)
[2019-05-23 14:28] LABS: CALCIUM 9.2 mg/dL (8.5-10.1); POTASSIUM 3.8 mmol/L (3.5-5.1)
[2019-05-23 14:33] LABS: ALBUMIN 3.7 g/dL (3.4-5.0); TOTAL BILIRUBIN 0.3 mg/dL (<0.1-1.0); TOTAL PROTEIN 7.7 g/dL (6.4-8.2)
[2019-05-23] MEDS ORDERED: NORFLEX100 MG PO (14:42)
[2019-05-23] MEDS ORDERED: TYLENOL WITH CO1 TA1 PO (14:42)
[2019-05-23 15:50] VITALS: BP 170/106
== END 2019-05-23 15:51 | disposition home or self-care (01) ==
LOC: M.ERS 13:46
PROVIDERS: Personal Emergency Response Attendant
DX: N23 Unspecified renal colic (principal); I10 Essential (primary) hypertension; F17.210 Nicotine dependence, cigarettes, uncomplicated; Z88.1 Allergy status to other antibiotic agents; Z88.0 Allergy status to penicillin; Z88.6 Allergy status to analgesic agent; Z91.040 Latex allergy status; Z90.49 Acquired absence of other specified parts of digestive tract; Z87.442 Personal history of urinary calculi

== ENCOUNTER 2019-08-04 02:16 | Emergency (ER) | payer OTHER ==
[~2019-08-04] VITALS: Ht 170.2 cm; Wt 65.8 kg
[~2019-08-04 02:16] MED LIST changes: +TYLENOL WITH CO1 TA1 PO
[2019-08-04] MEDS ORDERED: LISINOPRIL-HCT1 EACH PO (02:25)
[2019-08-04 03:02] LABS: ABSOLUTE BASOPHILS 0.1 thou/uL (0.0-0.2); ABSOLUTE EOSINOPHILS 0.2 thou/uL (0.0-0.7); ABSOLUTE LYMPHOCYTES 3.8 thou/uL (0.8-5.3); ABSOLUTE MONOCYTES 1.3 thou/uL (0.0-1.2); ABSOLUTE NEUTROPHILS 11.5 thou/uL (1.6-8.1); BASOPHILS 0.6 %; HEMATOCRIT 44.6 % (42.0-52.0); HEMOGLOBIN 15.4 gm/dL (14.0-18.0); LYMPHOCYTES 22.5 %; MCH 30.1 pg (26.0-34.0); MCHC 34.5 g/dL (28.0-37.0); MCV 87.2 fL (80.0-100.0); MPV 10.1 fl. (7.2-11.1); NUCLEATED RBCS 0 /100WBC; PLATELET COUNT* 329 thou/uL (150-400); POLYS 67.9 %; RBC 5.11 mil/uL (4.50-6.00); WBC 16.9 thou/uL (4.0-11.0)
[2019-08-04 03:17] LABS: CALCIUM 9.1 mg/dL (8.5-10.1); CREATININE 1.3 mg/dL (0.6-1.3); POTASSIUM 3.5 mmol/L (3.5-5.1)
[2019-08-04 03:17] LABS: URINE BILIRUBIN 2+ (Negative); URINE BLOOD NEGATIVE (Negative); URINE CLARITY CLEAR; URINE COLOR YELLOW; URINE GLUCOSE-RANDOM NEGATIVE (Negative); URINE KETONES NEGATIVE (Negative); URINE LEUKOCYTES-REFLEX NEGATIVE (Negative); URINE NITRITE-REFLEX NEGATIVE (Negative); URINE PROTEIN 1+ (Negative); URINE SPECIFIC GRAVITY >= 1.030 (1.005-1.030); URINE UROBILINOGEN 0.2 E.U./dl (0.2-1.0)
[2019-08-04 03:18] LABS: PROTIME 10.1 Seconds (9.20-11.50)
[2019-08-04 03:19] LABS: AMP/METHAMP Negative (Negative); BARBITURATES Negative (Negative); BENZODIAZEPINES Negative (Negative); COCAINE Negative (Negative); METHADONE Negative (Negative); OPIATES Negative (Negative); PCP Negative (Negative); THC POSITIVE (Negative)
[2019-08-04 03:22] LABS: ALBUMIN 3.9 g/dL (3.4-5.0); TOTAL BILIRUBIN 0.4 mg/dL (<0.1-1.0); TOTAL PROTEIN 8.2 g/dL (6.4-8.2)
[2019-08-04 03:26] LABS: ICTOTEST (BILI CONFIRMATORY) Negative (Negative)
[2019-08-04] MEDS ORDERED: HYDROCODON-ACE1 EAC8 PO ×2 (04:27→05:57)
[2019-08-04] MEDS ORDERED: CARAFATE 1 GM TA1 GM PO (05:49)
[2019-08-04] MEDS ORDERED: PRILOSEC OTC20 MG PO (05:49)
[2019-08-04] MEDS ORDERED: REGLAN10 MG PO (05:49)
[2019-08-04 06:01] VITALS: BP 128/79
== END 2019-08-04 06:01 | disposition home or self-care (01) ==
LOC: M.ERS 02:16
PROVIDERS: Emergency Medicine
DX: R10.816 Epigastric abdominal tenderness (principal); I10 Essential (primary) hypertension; R42 Dizziness and giddiness; F17.210 Nicotine dependence, cigarettes, uncomplicated; Z88.6 Allergy status to analgesic agent; Z88.5 Allergy status to narcotic agent; Z88.0 Allergy status to penicillin; Z88.1 Allergy status to other antibiotic agents; Z90.49 Acquired absence of other specified parts of digestive tract; Z87.442 Personal history of urinary calculi

== ENCOUNTER 2019-08-09 20:49 | Emergency (ER) | payer OTHER ==
[~2019-08-09] VITALS: Ht 170.2 cm; Wt 65.8 kg
[~2019-08-09 20:49] MED LIST changes: +CARAFATE 1 GM TA1 GM PO; +LISINOPRIL-HCT1 EACH PO; +PRILOSEC OTC20 MG PO; +REGLAN10 MG PO
[2019-08-09 22:07] LABS: HEMATOCRIT 40.3 % (42.0-52.0); HEMOGLOBIN 13.9 gm/dL (14.0-18.0); MCHC 34.5 g/dL (28.0-37.0); MCV 87.1 fL (80.0-100.0); MPV 9.6 fl. (7.2-11.1); RBC 4.63 mil/uL (4.50-6.00); RDW-CV 13.9 % (10.5-14.5); WBC 12.7 thou/uL (4.0-11.0)
[2019-08-09 22:16] LABS: CALCIUM 8.8 mg/dL (8.5-10.1); CREATININE 0.9 mg/dL (0.6-1.3); POTASSIUM 3.5 mmol/L (3.5-5.1)
[2019-08-09 22:21] LABS: ALBUMIN 3.5 g/dL (3.4-5.0); TOTAL BILIRUBIN 0.2 mg/dL (<0.1-1.0); TOTAL PROTEIN 7.5 g/dL (6.4-8.2)
[2019-08-09 23:21] VITALS: BP 158/100
== END 2019-08-09 23:21 | disposition home or self-care (01) ==
LOC: M.ERS 20:49
PROVIDERS: Personal Emergency Response Attendant
DX: R10.13 Epigastric pain (principal); I10 Essential (primary) hypertension; Z87.442 Personal history of urinary calculi; Z90.49 Acquired absence of other specified parts of digestive tract; Z79.899 Other long term (current) drug therapy; Z88.1 Allergy status to other antibiotic agents; Z88.0 Allergy status to penicillin; Z88.6 Allergy status to analgesic agent; Z91.040 Latex allergy status

== ENCOUNTER 2019-09-04 20:51 | Emergency (ER) | payer OTHER ==
[~2019-09-04] VITALS: Ht 170.2 cm; Wt 65.8 kg
[2019-09-04 21:25] LABS: ABSOLUTE BASOPHILS 0.1 thou/uL (0.0-0.2); ABSOLUTE EOSINOPHILS 0.2 thou/uL (0.0-0.7); ABSOLUTE LYMPHOCYTES 5.2 thou/uL (0.8-5.3); ABSOLUTE MONOCYTES 1.3 thou/uL (0.0-1.2); BASOPHILS 0.8 %; EOSINOPHILS 0.9 %; HEMATOCRIT 40.6 % (42.0-52.0); HEMOGLOBIN 13.9 gm/dL (14.0-18.0); LYMPHOCYTES 29.2 %; MCH 29.9 pg (26.0-34.0); MCHC 34.2 g/dL (28.0-37.0); MCV 87.3 fL (80.0-100.0); MONOCYTES 7.5 %; MPV 10.2 fl. (7.2-11.1); NUCLEATED RBCS 0 /100WBC; PLATELET COUNT* 313 thou/uL (150-400); POLYS 61.6 %; RBC 4.65 mil/uL (4.50-6.00); WBC 17.8 thou/uL (4.0-11.0)
[2019-09-04 21:30] LABS: CREATININE 0.9 mg/dL (0.6-1.3); POTASSIUM 3.5 mmol/L (3.5-5.1)
[2019-09-04 21:32] LABS: INR 0.9; PROTIME 9.7 Seconds (9.20-11.50)
[2019-09-04 21:34] LABS: ALBUMIN 3.8 g/dL (3.4-5.0); MAGNESIUM 2.1 mg/dL (1.8-2.4); TOTAL BILIRUBIN 0.3 mg/dL (<0.1-1.0); TOTAL PROTEIN 7.7 g/dL (6.4-8.2)
[2019-09-04 21:57] LABS: URINE BILIRUBIN NEGATIVE (Negative); URINE BLOOD TRACE (Negative); URINE CLARITY CLEAR; URINE COLOR YELLOW; URINE GLUCOSE-RANDOM NEGATIVE (Negative); URINE KETONES NEGATIVE (Negative); URINE LEUKOCYTES NEGATIVE (Negative); URINE NITRITE NEGATIVE (Negative); URINE PROTEIN NEGATIVE (Negative); URINE SPECIFIC GRAVITY >= 1.030 (1.005-1.030); URINE UROBILINOGEN 0.2 E.U./dl (0.2-1.0)
[2019-09-04 22:10] LABS: AMP/METHAMP Negative (Negative); BARBITURATES Negative (Negative); BENZODIAZEPINES Negative (Negative); COCAINE Negative (Negative); METHADONE Negative (Negative); OPIATES POSITIVE (Negative); PCP Negative (Negative); THC Negative (Negative)
[2019-09-04 23:35] VITALS: BP 132/75
[2019-09-04] MEDS ORDERED: HYDROCODON-ACE1 EAC8 PO (23:38)
[2019-09-04] MEDS ORDERED: CARAFATE 1 GM TA1 GM PO (23:38)
[2019-09-04] MEDS ORDERED: PRILOSEC OTC20 MG PO (23:38)
== END 2019-09-04 23:49 | disposition home or self-care (01) ==
LOC: M.ERS 20:51
PROVIDERS: Emergency Medicine
DX: K29.70 Gastritis, unspecified, without bleeding (principal); I10 Essential (primary) hypertension; F17.210 Nicotine dependence, cigarettes, uncomplicated; Z87.442 Personal history of urinary calculi; Z88.6 Allergy status to analgesic agent; Z90.49 Acquired absence of other specified parts of digestive tract; Z91.040 Latex allergy status; Z88.0 Allergy status to penicillin; Z88.1 Allergy status to other antibiotic agents; Z79.899 Other long term (current) drug therapy

== ENCOUNTER 2019-09-09 04:51 | Emergency (ER) | payer OTHER ==
[~2019-09-09] VITALS: Ht 170.2 cm; Wt 70.0 kg
[2019-09-09 05:23] LABS: ABSOLUTE BASOPHILS 0.2 thou/uL (0.0-0.2); ABSOLUTE EOSINOPHILS 0.6 thou/uL (0.0-0.7); ABSOLUTE LYMPHOCYTES 3.8 thou/uL (0.8-5.3); ABSOLUTE MONOCYTES 1.2 thou/uL (0.0-1.2); ABSOLUTE NEUTROPHILS 8.2 thou/uL (1.6-8.1); BASOPHILS 1.3 %; EOSINOPHILS 4.4 %; HEMATOCRIT 43.9 % (42.0-52.0); HEMOGLOBIN 15.1 gm/dL (14.0-18.0); LYMPHOCYTES 27.2 %; MCH 29.7 pg (26.0-34.0); MCHC 34.5 g/dL (28.0-37.0); MCV 86.2 fL (80.0-100.0); MONOCYTES 8.5 %; MPV 10.2 fl. (7.2-11.1); NUCLEATED RBCS 0 /100WBC; PLATELET COUNT* 324 thou/uL (150-400); POLYS 58.6 %; RBC 5.09 mil/uL (4.50-6.00); RDW-CV 14.3 % (10.5-14.5); WBC 14.1 thou/uL (4.0-11.0)
[2019-09-09 05:29] LABS: CALCIUM 9.2 mg/dL (8.5-10.1); CREATININE 1.1 mg/dL (0.6-1.3); POTASSIUM 3.5 mmol/L (3.5-5.1)
[2019-09-09 05:34] LABS: ALBUMIN 4.2 g/dL (3.4-5.0); TOTAL BILIRUBIN 0.5 mg/dL (<0.1-1.0); TOTAL PROTEIN 8.4 g/dL (6.4-8.2)
[2019-09-09] MEDS ORDERED: BENTYL 20 MG TA20 M1 PO (06:35)
[2019-09-09] MEDS ORDERED: CITRATE OF MAG296 M1 PO (06:35)
[2019-09-09 06:57] VITALS: BP 151/87
--- NOTE | 2019-09-10 10:58 | EKG ---
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: : 1980 Requested By: Yoseph Case Order Number: [id number] MD: Vikash Fraga Measurements Intervals [place] Rate: 89 P: 40 NM: 110 QRS: 30 QRSD: 88 T: 61 QT: 370 QTc: 451 Interpretive Statements Sinus rhythm Borderline short NM interval ST elev, probable normal early repol pattern Compared to ECG 11/13/2018 16:32:10 No significant changes Electronically Signed On 09-10-2019 10:57:28 CDT by Vikash Fraga [email or web address] <ELECTRONICALLY SIGNED> By: Vikash Fraga MD, [facility] 09/10/19 1057 0529 0529 Vikash Fraga MD, [facility] /EPI
== END 2019-09-09 06:58 | disposition home or self-care (01) ==
LOC: M.ERS 04:51
PROVIDERS: Emergency Medicine Emergency Medical Services
DX: K59.00 Constipation, unspecified (principal); R11.10 Vomiting, unspecified; I10 Essential (primary) hypertension; F17.210 Nicotine dependence, cigarettes, uncomplicated; Z90.49 Acquired absence of other specified parts of digestive tract; Z87.442 Personal history of urinary calculi; Z91.040 Latex allergy status; Z88.0 Allergy status to penicillin; Z88.1 Allergy status to other antibiotic agents; Z88.6 Allergy status to analgesic agent

== ENCOUNTER 2020-08-20 08:22 | Emergency (ER) | payer OTHER ==
[~2020-08-20] VITALS: Ht 170.2 cm; Wt 70.3 kg
[~2020-08-20 08:22] MED LIST changes: +BENTYL 20 MG TA20 M1 PO; +CITRATE OF MAG296 M1 PO
[2020-08-20] MEDS ORDERED: PERCOCET 10-321 EAC1 PO (08:41)
[2020-08-20] MEDS ORDERED: ZESTORETIC 20-1 EACH PO (09:22)
[2020-08-20 09:26] LABS: ABSOLUTE BASOPHILS 0.1 thou/uL (0.0-0.2); ABSOLUTE EOSINOPHILS 0.3 thou/uL (0.0-0.7); ABSOLUTE MONOCYTES 0.7 thou/uL (0.0-1.2); ABSOLUTE NEUTROPHILS 3.9 thou/uL (1.6-8.1); EOSINOPHILS 3.3 %; HEMATOCRIT 39.8 % (42.0-52.0); HEMOGLOBIN 13.1 gm/dL (14.0-18.0); LYMPHOCYTES 37.7 %; MCH 28.6 pg (26.0-34.0); MCV 86.7 fL (80.0-100.0); MONOCYTES 8.5 %; MPV 9.7 fl. (7.2-11.1); NUCLEATED RBCS 0 /100WBC; PLATELET COUNT* 261 thou/uL (150-400); POLYS 49.5 %; RBC 4.59 mil/uL (4.50-6.00); RDW-CV 15.1 % (10.5-14.5); WBC 7.8 thou/uL (4.0-11.0)
[2020-08-20 09:32] LABS: CALCIUM 8.7 mg/dL (8.5-10.1); CREATININE 0.8 mg/dL (0.6-1.3)
[2020-08-20 09:37] LABS: ALBUMIN 3.6 g/dL (3.4-5.0); TOTAL BILIRUBIN 0.5 mg/dL (<0.1-1.0); TOTAL PROTEIN 7.5 g/dL (6.4-8.2)
[2020-08-20 09:55] VITALS: BP 180/88
== END 2020-08-20 09:56 | disposition home or self-care (01) ==
LOC: M.ERS 08:22
PROVIDERS: Family Medicine
DX: R60.0 Localized edema (principal); I10 Essential (primary) hypertension; M25.572 Pain in left ankle and joints of left foot; F17.210 Nicotine dependence, cigarettes, uncomplicated; Z87.442 Personal history of urinary calculi; Z90.49 Acquired absence of other specified parts of digestive tract; Z98.890 Other specified postprocedural states; Z88.6 Allergy status to analgesic agent; Z91.040 Latex allergy status; Z88.1 Allergy status to other antibiotic agents; Z88.0 Allergy status to penicillin; Z88.8 Allergy status to other drugs, medicaments and biological substances

== ENCOUNTER 2021-01-27 18:29 | Emergency (ER) | payer OTHER ==
[~2021-01-27] VITALS: Ht 170.2 cm; Wt 74.4 kg
[~2021-01-27 18:29] MED LIST changes: +PERCOCET 10-321 EAC1 PO; +ZESTORETIC 20-1 EACH PO
[2021-01-27 18:38] VITALS: BP 160/103
[2021-01-27] MEDS ORDERED: CLEOCIN HCL300 MG PO (18:46)
[2021-01-27] MEDS ORDERED: NORCO5 PO (19:37)
== END 2021-01-27 19:51 | disposition home or self-care (01) ==
LOC: M.ERS 18:29
DX: K11.21 Acute sialoadenitis (principal); I10 Essential (primary) hypertension; F17.210 Nicotine dependence, cigarettes, uncomplicated; Z90.49 Acquired absence of other specified parts of digestive tract; Z79.899 Other long term (current) drug therapy; Z88.0 Allergy status to penicillin; Z91.040 Latex allergy status; Z88.6 Allergy status to analgesic agent; Z88.5 Allergy status to narcotic agent

== ENCOUNTER 2021-01-29 14:12 | Emergency (ER) | payer OTHER ==
[~2021-01-29] VITALS: Ht 170.2 cm; Wt 74.8 kg
[~2021-01-29 14:12] MED LIST changes: +CLEOCIN HCL300 MG PO; +NORCO5 PO
[2021-01-29 14:49] LABS: ABSOLUTE BASOPHILS 0.1 thou/uL (0.0-0.2); ABSOLUTE EOSINOPHILS 0.2 thou/uL (0.0-0.7); ABSOLUTE LYMPHOCYTES 2.5 thou/uL (0.8-5.3); ABSOLUTE MONOCYTES 0.8 thou/uL (0.0-1.2); ABSOLUTE NEUTROPHILS 7.6 thou/uL (1.6-8.1); BASOPHILS 0.7 %; EOSINOPHILS 1.7 %; HEMATOCRIT 43.8 % (42.0-52.0); HEMOGLOBIN 14.4 gm/dL (14.0-18.0); LYMPHOCYTES 22.7 %; MCHC 32.9 g/dL (28.0-37.0); MCV 88.1 fL (80.0-100.0); MPV 9.2 fl. (7.2-11.1); NUCLEATED RBCS 0 /100WBC; PLATELET COUNT* 300 thou/uL (150-400); POLYS 67.9 %; RBC 4.97 mil/uL (4.50-6.00); RDW-CV 13.9 % (10.5-14.5); WBC 11.1 thou/uL (4.0-11.0)
[2021-01-29 15:29] LABS: CALCIUM 8.9 mg/dL (8.5-10.1)
[2021-01-29 15:33] LABS: TOTAL BILIRUBIN 0.5 mg/dL (<0.1-1.0); TOTAL PROTEIN 7.9 g/dL (6.4-8.2)
[2021-01-29] MEDS ORDERED: NORCO5 PO (16:51)
[2021-01-29 17:22] VITALS: BP 128/88
== END 2021-01-29 17:23 | disposition home or self-care (01) ==
LOC: M.ERS 14:12
PROVIDERS: Nurse Practitioner Family
DX: K11.20 Sialoadenitis, unspecified (principal); H92.02 Otalgia, left ear; R11.0 Nausea; I10 Essential (primary) hypertension; F17.210 Nicotine dependence, cigarettes, uncomplicated; Z90.49 Acquired absence of other specified parts of digestive tract; Z98.890 Other specified postprocedural states; Z87.442 Personal history of urinary calculi; Z88.6 Allergy status to analgesic agent; Z91.040 Latex allergy status; Z88.1 Allergy status to other antibiotic agents; Z88.0 Allergy status to penicillin; Z79.2 Long term (current) use of antibiotics; Z79.899 Other long term (current) drug therapy

== ENCOUNTER 2021-04-26 18:22 | Emergency (ER) | payer OTHER ==
[~2021-04-26] VITALS: Ht 170.2 cm; Wt 77.1 kg
[2021-04-26] MEDS ORDERED: LISINOPRIL20 MG PO (18:46)
[2021-04-26] MEDS ORDERED: CLEOCIN HCL300 MG PO (18:47)
[2021-04-26] MEDS ORDERED: FLEXERIL PO (19:58)
[2021-04-26] MEDS ORDERED: MEDROLDOSEPACK PO (19:58)
[2021-04-26] MEDS ORDERED: LIDOCAINE VISC100 ML SWISH&SPIT (19:58)
[2021-04-26] MEDS ORDERED: APAP W/CODEINE1 TA2 PO (19:58)
[2021-04-26 20:05] VITALS: BP 138/97
--- NOTE | 2021-04-27 16:00 | EKG ---
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 : 1980 Requested By: Joe Valdes Order Number: [id number] MD: Vikash Fraga Measurements Intervals [place] Rate: 99 P: 36 MA: 104 QRS: 33 QRSD: 85 T: 56 QT: 337 QTc: 433 Interpretive Statements Sinus tachycardia Baseline wander in lead(s) II,III,aVF Compared to ECG 09/09/2019 05:29:44 Sinus rate has increased ST (T wave) deviation no longer present Electronically Signed On 04-27-2021 16:00:38 SCREENER AND BLENDER by Vikash Fraga [email or web address] <ELECTRONICALLY SIGNED> By: Vikash Fraga MD, FACC 04/27/211599 36 36 Vikash Fraga MD, FACC /EPI
== END 2021-04-26 20:06 | disposition home or self-care (01) ==
LOC: M.ERS 18:22
DX: K01.1 Impacted teeth (principal); R07.89 Other chest pain; I10 Essential (primary) hypertension; F17.210 Nicotine dependence, cigarettes, uncomplicated; Z90.49 Acquired absence of other specified parts of digestive tract; Z79.899 Other long term (current) drug therapy; Z88.6 Allergy status to analgesic agent; Z91.040 Latex allergy status; Z88.0 Allergy status to penicillin

== ENCOUNTER 2021-05-11 10:09 | Emergency (ER) | payer OTHER ==
[~2021-05-11] VITALS: Ht 170.2 cm; Wt 77.6 kg
[~2021-05-11 10:09] MED LIST changes: +APAP W/CODEINE1 TA2 PO; +LIDOCAINE VISC100 ML SWISH&SPIT; +LISINOPRIL20 MG PO
[2021-05-11] MEDS ORDERED: NAPROSYN500 MG PO (10:39)
[2021-05-11] MEDS ORDERED: CLEOCIN HCL300 MG PO (10:39)
[2021-05-11 10:56] VITALS: BP 188/115
== END 2021-05-11 10:58 | disposition home or self-care (01) ==
LOC: M.ERS 10:09
DX: K02.9 Dental caries, unspecified (principal); I10 Essential (primary) hypertension; F17.210 Nicotine dependence, cigarettes, uncomplicated; Z76.5 Malingerer [conscious simulation]; Z90.49 Acquired absence of other specified parts of digestive tract; Z79.899 Other long term (current) drug therapy; Z88.0 Allergy status to penicillin; Z91.040 Latex allergy status; Z88.6 Allergy status to analgesic agent